=== PATIENT | female | born 1950 | race Two or more races ===

== ENCOUNTER 2023-01-27 15:37 | Emergency (ER) | payer OTHER, BC ==
[~2023-01-27] VITALS: Ht 157.5 cm; Wt 81.0 kg
[~2023-01-27 15:37] MED LIST: DOXY-448 PO; ESTR2TAB4 PO; HYDR-4072 PO; LOS25T PO; METF-370 PO; PROBCAP12 PO; RABE1TAB4 PO
[2023-01-27 17:21] VITALS: BP 157/49
[2023-01-27] MEDS ORDERED: ACET-1079 PO (18:30)
[2023-01-27] MEDS ORDERED: ACETAMINOPHEN 500 MG TAB PO ONE (18:30)
== END 2023-01-27 18:55 | disposition home or self-care (01) ==
LOC: ER 15:37
DX: S40.022A Contusion of left upper arm, initial encounter (principal); S00.93XA Contusion of unspecified part of head, initial encounter; R42 Dizziness and giddiness; Z88.6 Allergy status to analgesic agent; W18.09XA Striking against other object with subsequent fall, initial encounter; Y93.89 Activity, other specified; Y92.89 Other specified places as the place of occurrence of the external cause; Y99.8 Other external cause status
CPT/HCPCS: 70450; 72125; 73060; 73590